=== PATIENT | female | born 1990 | race Caucasian/White ===

== ENCOUNTER → 2021-11-21 | Outpatient (CLI) | payer OTHER ==
[~2021-11-21] MED LIST: COLACE 100MG C100 MG PO; FERROUS SULFAT325 M1 PO; IBUPROFEN600 MG PO; LORTAB 5-325 M1 EACH PO; PHENERGAN 12.12.5 M1 PO; PRILOSEC OTC20 MG PO
== END ==
LOC: EXRD 11-17 15:00
DX: R22.31 Localized swelling, mass and lump, right upper limb (principal)
CPT/HCPCS: 76882